=== PATIENT | male | born 1995 | race Hispanic/Latino ===

== ENCOUNTER 2016-05-11 23:11 | Emergency (ER) | payer OTHER ==
[~2016-05-11] VITALS: Ht 172.7 cm; Wt 69.9 kg
[~2016-05-11 23:11] MED LIST: AUGMENTIN875 MG PO; BACTRIM,SEPT1 TABLET PO; BENADRYL50 MG PO; BENTYL10 MG PO; BENTYL20 MG PO; COLACE100 MG PO; FLEXERIL10 MG PO; HYDROCODON-ACE1 EAC9 PO; HYDROXYZINE HCL25 MG PO; MEDROL DOSEPAK4 MG PO; MOTRIN600 MG PO; NAPROSYN500 MG PO; NOHOMEMEDS; NORCO 5/3251 TABLET PO; PEPCID20 MG PO; PERCOCET 5/31 TABLET PO; PREDNISONE20 MG PO; TYLENOL WITH C1 EACH PO; ULTRAM50 MG PO; VIBRAMYCIN100 MG PO; ZOFRAN ODT4 MG PO; ZOFRAN4 MG PO
[2016-05-11 23:40] LABS: HEMATOCRIT 42.7 % (38.0-50.0); MCH 28.7 PG (29.0-34.0); MCHC 35.6 G/DL (30.0-36.0); MCV 80.6 FL (86-99); MEAN PLAT.VOLUME 10.6 uM^3 (9.0-12.4); PLATELET COUNT 215 K/uL (156-360); RBC DIS.WIDTH-CV 12.4 % (11.8-14.6); RBC DIS.WIDTH-SD 35.8 % (39-53); WHITE BLOOD COUNT 6.4 K/uL (4.1-10.2)
[2016-05-11 23:50] LABS: CHLORIDE 104 mEq/L (99-109); POTASSIUM 3.5 mEq/L (3.7-5.4); SODIUM 139 mEq/L (136-147)
[2016-05-11 23:51] LABS: GLUCOSE 131 mg/dL (70-99)
[2016-05-11 23:52] LABS: D-DIMER ELISA 0.31 mg/L FEU (< 0.57)
[2016-05-11 23:53] LABS: ANION GAP 10 MEQ/L (2-14)
[2016-05-11 23:55] LABS: GFR ESTIMATE (CALCULATED) > 59 mL/min/
[2016-05-11 23:56] LABS: UREA NITROGEN (BUN) 17 mg/dL (9-23)
[2016-05-12] LABS: TROP-I INTERPRETATION NEGATIVE; TROPONIN-I < 0.01 ng/mL (0.0-0.30)
[2016-05-12 02:09] LABS: TROP-I INTERPRETATION NEGATIVE; TROPONIN-I < 0.01 ng/mL (0.0-0.30)
[2016-05-12] MEDS ORDERED: MEDROL DOSEPAK4 MG PO (02:11)
[2016-05-12] MEDS ORDERED: VENTOLIN HFA18 GM IH (02:11)
[2016-05-12 02:29] VITALS: BP 103/56
== END 2016-05-12 02:43 | disposition home or self-care (01) ==
LOC: EME → EDBD 23:11 → EME 23:11
PROVIDERS: Emergency Medicine
DX: F41.9 Anxiety disorder, unspecified (principal); R07.9 Chest pain, unspecified; E87.6 Hypokalemia; J45.901 Unspecified asthma with (acute) exacerbation; F17.200 Nicotine dependence, unspecified, uncomplicated
CPT/HCPCS: 71020; 80048; 84484; 85027; 85379; 93005; 94640; 99281; 99285

== ENCOUNTER 2016-08-28 22:53 | Emergency (ER) | payer OTHER ==
[~2016-08-28] VITALS: Ht 172.7 cm; Wt 66.6 kg
[~2016-08-28 22:53] MED LIST changes: +VENTOLIN HFA18 GM IH
[2016-08-29 02:03] VITALS: BP 117/73
== END 2016-08-29 02:04 | disposition home or self-care (01) ==
LOC: EME 22:53 → RME 22:53
DX: G43.909 Migraine, unspecified, not intractable, without status migrainosus (principal); J45.909 Unspecified asthma, uncomplicated; G89.29 Other chronic pain; M54.9 Dorsalgia, unspecified; F17.200 Nicotine dependence, unspecified, uncomplicated
CPT/HCPCS: 70450; 99281; 99285; J1200; J1885; J2270; J2405; J2765; J7030

== ENCOUNTER 2017-01-22 15:29 | Emergency (ER) | payer OTHER ==
[~2017-01-22] VITALS: Ht 172.7 cm; Wt 72.5 kg
[2017-01-22 17:59] VITALS: BP 127/81
== END 2017-01-22 18:02 | disposition home or self-care (01) ==
LOC: EME 15:29
DX: G43.909 Migraine, unspecified, not intractable, without status migrainosus (principal); F17.200 Nicotine dependence, unspecified, uncomplicated
CPT/HCPCS: 99281; 99285; J1200; J1885; J2765; J7030